=== PATIENT | male | born 1930 | race Caucasian/White ===

== ENCOUNTER 2017-02-04 10:38 | Emergency (ER) | payer MEDICARE, OTHER ==
[2017-02-04 10:51] VITALS: BP 95/70
--- NOTE | 2017-02-04 11:07 | EDM.PDOC ---
ED HPI GENERAL MEDICAL PROBLEM - General Chief Complaint: Lower Extremity Injury/Pain Stated Complaint: LEFT KNEE INJURY,COPD Time Seen by Provider: 02/04/17 11:02 Source of Information: Reports: Patient, Family History Limitations: Reports: No Limitations - History of Present Illness INITIAL COMMENTS - FREE TEXT/NARRATIVE: 86-year-old male reports he slipped and fell on the sidewalk with blunt force trauma to his left knee about 4 days ago. The knee keeps on swelling making ambulation even more difficult and painful. Of note he is on Plavix and aspirin. He injured his right hand wrist area but this seems to be healing up okay. He has scrapes to his right knee as well but again can weight-bear on that side without much problem. No pain in his hips. He did not injure his head. Onset: Gradual Onset Date: 01/31/17 (Fell on the sidewalk 4 days ago.) Duration: Day(s): Location: Reports: Upper Extremity, Left (Left wrist pain), Lower Extremity, Left (Knee pain) Quality: Reports: Ache, Pressure, Other Severity: Moderate (Swelling and making difficult to walk.) Improves with: Reports: None Worsens with: Reports: Movement Context: Reports: Trauma (Tripped up and fell with direct blow to the knees left one continues to swell. The right one has a few abrasions that are healing satisfactorily). Denies: Activity (Weightbearing), Exercise, Lifting, Sick Contact Associated Symptoms: Reports: No Other Symptoms, Other (Had some superficial lacerations to his left hand which are healing well. He can make a good grasps. No wrist pain.) Treatments STRATEGIC CONSULTANT: Reports: Acetaminophen Left Knee Pain Score (Numeric/FACES): 7 - Related Data Allergies Allergy/AdvReac Type Severity Reaction Status Date / Time No Known Allergies Allergy Verified 02/04/17 10:47 Home Meds: Home Meds Albuterol Sulfate [Proair Hfa] 8.5 gm IH ASDIRECTED 02/04/17 [History] Albuterol [IJD: Albuterol] 2.5 mg NEB DAILY 02/04/17 [History] Aspirin 162 mg PO BRK 02/04/17 [History] Carvedilol [Coreg] 3.125 mg PO BID 02/04/17 [History] Clopidogrel [Plavix] 75 mg PO DAILY 02/04/17 [History] Docusate Sodium [Stool Softener] 2 cap PO DAILY 02/04/17 [History] Enalapril [Vasotec] 10 mg PO DAILY 02/04/17 [History] Finasteride 1 mg PO DAILY 02/04/17 [History] Simvastatin [Zocor] 40 mg PO BEDTIME 02/04/17 [History] Tamsulosin [Flomax] 0.4 mg PO PCBREAKFAST 02/04/17 [History] guaiFENesin [Guaifenesin ER] 600 mg PO DAILY 02/04/17 [History] oxyCODONE HCl/Acetaminophen [Percocet 5-325 mg Tablet] 1 - 2 each PO Q4H PRN # 20 tablet 02/04/17 [Rx] rOPINIRole [Requip] 0.25 mg PO BEDTIME 02/04/17 [History] Past Medical History Cardiovascular History: Reports: CAD, Cardiomyopathy, High Cholesterol, IA (4.) , SOB on Exertion (Congestive heart failure), Other (See Below) (Pressure tends to run low.) Respiratory History: Reports: COPD (Chronic oxygen dependency at 2.5 L/m.) Genitourinary History: Reports: BPH Musculoskeletal History: Reports: Osteoarthritis, Osteoporosis Social & Family History - Tobacco Use Smoking Status *Q: Former Smoker Used Tobacco, but Quit: Yes Month Tobacco Last Used: 1984 Second Hand Smoke Exposure: No - Caffeine Use Caffeine Use: Reports: Coffee - Recreational Drug Use Recreational Drug Use: No - Living Situation & Occupation Living situation: Reports: Occupation: Retired Review of Systems - Review of Systems Review Of Systems: See Below Constitutional: Reports: Weakness. Denies: Diaphoresis, Fever Eyes: Reports: No Symptoms Ears: Reports: No Symptoms Nose: Reports: No Symptoms Mouth/Throat: Reports: No Symptoms Respiratory: Reports: Shortness of Breath, Wheezing (Has chronic terminal COPD. He is on oxygen 2.5 L/m at all times.), Cough. Denies: Pleuritic Chest Pain ( Intermittently), Hemoptysis (Occasional cough of clear sputum) Cardiovascular: Reports: Edema (Mild both lower extremities chronically.), Lightheadedness (At times when he gets up too fast). Denies: Chest Pain GI/Abdominal: Reports: Constipation (Sometimes). Denies: Abdominal Pain, Bloody Stool Genitourinary: Reports: Other (Slow urinary stream. Nocturia usually 3-4 times per night. Has benign prostatic hypertrophy) Musculoskeletal: Reports: Neck Pain, Shoulder Pain (Knees hips back shoulders and neck), Back Pain, Joint Pain Skin: Reports: Bruising (Bruises easily due to being on Plavix and aspirin.) Neurological: Reports: Dizziness, Other (Has restless leg syndrome.). Denies: Paresthesia (Sometimes with standing up too quickly.) Psychiatric: Reports: Mood Lability ED EXAM, GENERAL - Physical Exam Exam: See Below Exam Limited By: No Limitations General Appearance: Alert, WD/WN, No Apparent Distress Eye Exam: Bilateral Eye: Normal Inspection Respiratory/Chest: Respiratory Distress (To Bed rest 24-26/m. On oxygen at 2.5 L. O2 sats are 94%.), Decreased Breath Sounds (Decreased breath sounds to lower 30% of lung doll bilaterally.), Rhonchi (Rhonchi and expiratory wheezes.) Cardiovascular: Regular Rate, Rhythm, No Gallop, No Murmur. No: Normal Peripheral Pulses, No Edema Peripheral Pulses: 1+: Posterior Tibial (L), Posterior Tibial (R), Dorsalis Pedis (L), Dorsalis Pedis (R) Extremities: Other (He has 2 abrasions over his right patella which are healing satisfactorily without any signs of infection. Is some superficial skin tears to the dorsal aspect of his left hand but has good grasp strength and no pain on compression of his wrist. There is black and blue. He has marked swelling of his left anterior knee. There is a true effusion. Up until spaces also bulging. He has some mild superficial abrasions over the patella. Certainly has internal derangement.) Neurological: Alert, Oriented, CN II-XII Intact, Normal Cognition. No: Normal Gait Psychiatric: Normal Affect, Normal Mood Skin Exam: Warm, Dry, Intact, Normal Color, Pallor (Mild pallor) Course - Vital Signs Last Recorded V/S: Last Vital Signs Temp 36.4 C 02/04/17 10:47 Pulse 87 02/04/17 10:47 Resp 24 H 02/04/17 10:47 BP 95/70 02/04/17 10:47 Pulse Ox 94 L 02/04/17 10:47 - Orders/Labs/Meds Orders: Active Orders 24 hr Category Date Time Status Knee 3V Lt [CR] Stat Exams 02/04/17 11:03 Taken - Radiology Interpretation Free Text/Narrative:: 86-year-old male presents to the ED for evaluation of left knee pain. He states he slipped and fell with direct blow to both knees well using his walker 4 days ago. He struck both knees on the sidewalk. The left knee as continued to swell and is more painful. The right knee has some superficial abrasions but is recovering on its own. Had some scrapes to his left hand which are healing satisfactorily as well. He did not hit his chest or his face. Of note the patient is on Plavix and aspirin. Plan x-ray of the left knee to be obtained. - Re-Assessments/Exams Free Text/Narrative Re-Assessment/Exam: 02/04/17 11:41 x-rays of the left knee reveal diffuse degenerative changes with abnormal calcification superior to the patella posterior to the femoral condyle and vascular calcification posteriorly. There is a large effusion present. Patella is on [id number]. It is in the appropriate position with no evidence of quadriceps tear. Cannot really examine the knee for ligament instability at this time due to the amount of effusion. He will be placed in a long knee immobilizer and has a walker that he gets along with. I'll have him followed up by orthopedic surgery and possibly 6 or 7 days time. 02/04/17 11:57 we will get him set up with a walker as he is only got a cane with him. His walker is back home in [place]. He discussed the possibility of portable oxygen but when I discussed this with [employer] the tank itself is around $75 but the regulator is close to $500. Patient decided against portable oxygen therapy. Pending the increased humidity here making it much more difficult to breathe requiring oxygen continuously rather than just at night. Plan will be to place him in a knee long knee immobilizer. Percocet tablets 1 tablet every 4-6 hours needed for pain relief. He cannot take NSAIDs because he is on Plavix. Departure - Departure Time of Disposition: 11:58 Disposition: Home, Self-Care 01 Condition: Fair Clinical Impression: Effusion into joint Contusion of left knee, initial encounter Qualifiers: Encounter type: initial encounter Qualified Code(s): S80.02XA - Contusion of left knee, initial encounter - Discharge Information Prescriptions: oxyCODONE HCl/Acetaminophen [Percocet 5-325 mg Tablet] 1 - 2 each PO Q4H PRN # 20 tablet PRN Reason: pain relief. Forms: ED Department Discharge Additional Instructions: Evaluation in the emergency room today in regards to recent fall 4 days ago with blunt force trauma to the left and right knee. The right knee suffered a few abrasions but has no other injuries. Left knee shows evidence of blood within the knee cavity which we call a traumatic effusion. This means something was torn within the knee either the cartilage or ligaments the fact that your Plavix and aspirin contributed to the bleeding and the gross amount of swelling. There is a linear reveal advanced degenerative arthritic changes within the [id number] and marked narrowing of the lateral joint space. The swelling is too great at this time to examine the ligaments properly . Therefore advise follow-up with orthopedic surgeon in about a weeks time once the swelling is gone down so that further assessment of ligaments or possible injury to the inside of the knee can be identified. Meantime ER to use the long knee immobilizer on during the day and off at night. Use the walker to support her weight and balance. Continue Tylenol as needed and if something stronger as required may use Percocet 5-325 mg tablets 1 every 4-6 hours as needed. As we discussed they tend to make her constipated and he may need increase stool softener while taking the pain medication. In the swelling should've maxed out by now and so it'll gradually recede over the next 10-14 days. - My Orders Last 24 Hours: My Active Orders 02/04/17 11:03 Knee 3V Lt [CR] Stat - Assessment/Plan Last 24 Hours: My Active Orders 02/04/17 11:03 Knee 3V Lt [CR] Stat
--- NOTE | 2017-02-04 12:55 | CR ---
Left knee: AP, lateral and sunrise patellar views of the left knee were obtained. Moderate medial joint space narrowing is seen. Mild osteophytes are noted off the medial joint. Chondrocalcinosis is noted within both menisci. Calcification is seen along the lateral knee presumably due to old medial collateral ligament injury. Synovial calcification is seen within the suprapatellar pouch. Vascular calcification is noted. Small osteophytes are noted off the patella. Nothing acute is seen. Impression: 1. Diffuse degenerative change as described above. 2. Nothing acute is identified on left knee study. Diagnostic code #3
== END 2017-02-04 12:15 | disposition home or self-care (01) ==
LOC: JD.ED 10:38 → EDBD 10:38 → JD.ED 12:15
DX: S80.02XA Contusion of left knee, initial encounter (principal); I25.10 Atherosclerotic heart disease of native coronary artery without angina pectoris; I25.2 Old myocardial infarction; E78.00 Pure hypercholesterolemia, unspecified; J44.9 Chronic obstructive pulmonary disease, unspecified; M19.90 Unspecified osteoarthritis, unspecified site; M81.0 Age-related osteoporosis without current pathological fracture; Z87.891 Personal history of nicotine dependence; Z79.899 Other long term (current) drug therapy; Z79.02 Long term (current) use of antithrombotics/antiplatelets; W01.0XXA Fall on same level from slipping, tripping and stumbling without subsequent striking against object, initial encounter
CPT/HCPCS: 73562-26-LT; 73562-LT; 99283; 99284